=== PATIENT | male | born 1980 | race Caucasian/White ===

== ENCOUNTER → 2016-05-07 | Outpatient (CLI) | payer OTHER ==
[~2016-05-07] MED LIST: CLIN150C2 PO; IBUP-15 PO; IBUP-1779 PO; NAPR550T PO; clindamycin PO
== END ==
LOC: PREOP 10:16
PROVIDERS: ATTEND Specialist
DX: Z01.818 Encounter for other preprocedural examination (principal)

== ENCOUNTER 2016-05-08 10:03 | Day surgery (SDC) | payer OTHER ==
[~2016-05-08] VITALS: Ht 175.3 cm; Wt 72.6 kg
[2016-05-08] MEDS ORDERED: ceFAZolin 2 GM/NS 50 ML IV ONE (10:30)
[2016-05-08] MEDS ORDERED: LIDOCAINE PF 2% 10 ML (XYLOCAINE) AMP ONE (10:48)
[2016-05-08] MEDS ORDERED: ONDANSETRON 4 MG/2 ML (SDV) Z0FRAN ONE ×2 (10:48→12:17)
[2016-05-08] MEDS ORDERED: DEXAMETHASONE PF 10 MG/ML (DECADRON) VIAL ONE (10:48)
[2016-05-08] MEDS ORDERED: MIDAZOLAM 2 MG/2 ML (VERSED) VIAL ONE (10:49)
[2016-05-08] MEDS ORDERED: proPOfol 200 MG/20 ML (DIPRIVAN) VIAL IV ONE (10:49)
[2016-05-08] MEDS ORDERED: LACTATED RINGERS 1,000 ML IV ONE ×2 (10:49→12:05)
[2016-05-08] MEDS ORDERED: ROCURONIUM 50 MG/5 ML (ZEMURON) VIAL IV ONE (10:49)
[2016-05-08] MEDS ORDERED: fentaNYL INJECTION 100 MCG/2 ML AMP ONE (10:50)
[2016-05-08] MEDS ORDERED: LIDOCAINE/EPI 2% 1:100,00 (XYLOCAINE) 20 ML VIAL ONE (10:51)
[2016-05-08] MEDS: LACTATED RINGERS 1,000 ML IV PRN ×2 (10:54→12:05)
[2016-05-08] MEDS ORDERED: fentaNYL INJECTION 100 MCG/2 ML AMP IV ONE (11:00)
[2016-05-08 11:12] VITALS: BP 128/88
[2016-05-08] MEDS ORDERED: clindamycin PO (11:19)
[2016-05-08] MEDS ORDERED: IBUP-1779 PO (11:19)
[2016-05-08] MEDS ORDERED: NAPR550T PO (11:19)
[2016-05-08] MEDS ORDERED: PHENYLEPHRINE 0.25% NASAL SPR (NEO-SYNEPHRINE) 15 ML NS ONE (12:04)
[2016-05-08] MEDS ORDERED: GLYCOPYRROLATE 0.2 MG/ML (ROBINUL) 2 ML VIAL ONE (12:04)
[2016-05-08] MEDS ORDERED: SEVOFLURANE (ULTANE) 15 ML INHAL SOLN ONE ×3 (12:05→12:43)
[2016-05-08] MEDS ORDERED: morphine INJ 10 MG/ML 1ML (SYR OR VIAL) ONE (12:17)
[2016-05-08] MEDS ORDERED: MEPERIDINE (DEMEROL) INJ 50 MG/ML ONE (12:17)
[2016-05-08] MEDS ORDERED: HYDROmorphone (DILAUDID) 2 MG/ML VIAL ONE ×2 (12:17→13:03)
[2016-05-08] MEDS ORDERED: PHENYLEPHRINE 100 MCG/ML 10 ML (ANESTHESIA) SYR ONE (12:43)
[2016-05-08] MEDS: morphine INJ 10 MG/ML 1ML (SYR OR VIAL) IVP PRN ×2 (13:01→13:04)
[2016-05-08] MEDS: HYDROmorphone (DILAUDID) 2 MG/ML VIAL IV PRN ×3 (13:09→13:24)
[2016-05-08] MEDS ORDERED: fentaNYL INJECTION 100 MCG/2 ML AMP IVP PRN (13:15)
[2016-05-08] MEDS ORDERED: HYDROmorphone (DILAUDID) 2 MG/ML VIAL IVP PRN (13:15)
[2016-05-08] MEDS ORDERED: ONDANSETRON 4 MG/2 ML (SDV) Z0FRAN IVP PRN (13:15)
[2016-05-08] MEDS ORDERED: MEPERIDINE (DEMEROL) INJ 50 MG/ML IVP PRN (13:15)
[2016-05-08] MEDS ORDERED: PROMETHAZINE INJ 25 MG/ML (PHENERGAN) AMP IVP PRN (13:15)
--- NOTE | 2016-05-08 13:19 | Progress Note-Pre Operative ---
Pre-Operative Progress Note H&P Reviewed The H&P was reviewed, patient examined and no changes noted. Date H&P Reviewed: May 08, 2016 Time H&P Reviewed: 11:00 Pre-Operative Diagnosis: left mandibular angle fx ZANDRA REAL DDS May 08, 2016 1:19 pm
--- NOTE | 2016-05-08 13:22 | Progress Note-Post Operative ---
Post-Operative Progess Note Surgeon (s)/Assembler Clip On Sunglasses (s) Surgeon ZANDRA REAL DDS Assembler Clip On Sunglasses: ray chaney Pre-Operative Diagnosis left mandibular angle fx Post-Operative Diagnosis same Post-Op Procedure Note Date of Procedure: May 08, 2016 Name of Procedure Performed: open reduction left mandibular angle fx ext of 15 and 18 Description of the Procedure: as above Findings of the Procedure same as preop Anesthesia Type geta Estimated blood loss (mL): minimal Packing: none Specimen(s) collected/removed none ZANDRA REAL DDS May 08, 2016 1:22 pm
[2016-05-08] MEDS ORDERED: DEXAMETHASONE 4 MG/ML SDV (DECADRON) ONE (13:24)
[2016-05-08] MEDS ORDERED: DEXAMETHASONE 4 MG/ML SDV (DECADRON) IV SCH (13:30)
[2016-05-08] MEDS ORDERED: HYDROcodone/APAP 7.5MG-325 MG/15 ML (LORTAB) UDC PO PRN (13:30)
[2016-05-08 13:50] VITALS: BP 138/97
[2016-05-08] MEDS ORDERED: ceFAZolin INJECTION 1,000 MG in NS (IVPB) 50 ML IV SCH (14:00)
[2016-05-08] MEDS ORDERED: IBUP-15 PO (14:12)
[2016-05-08] MEDS ORDERED: CLIN150C2 PO (14:12)
[2016-05-08 14:20] VITALS: BP 135/78
[2016-05-08 14:45] VITALS: BP 135/78
--- NOTE | 2016-05-26 08:38 | OPERATIVE REPORT ---
PROCEDURE PHYSICIAN: ZANDRA REAL DATE OF PROCEDURE: 05/08/2016 SERVICE: veterinary surgery technician. PREOPERATIVE DIAGNOSIS: Left mandibular angle fracture, complete, open and minimally displaced. POSTOPERATIVE DIAGNOSIS: Left mandibular angle fracture, complete, open and minimally displaced. PROCEDURE: 1. Open reduction of left mandibular angle fracture. 2. Extraction of tooth numbers 15 and 18. 3. Application of Naresh arch bars. SUBSTANCE ABUSE COUNSELOR: Leslie Johnson COMPLICATIONS: None. ESTIMATED BLOOD LOSS: Minimal. FLUIDS: 700 mL of crystalloid. INSTRUMENT, NEEDLE AND SPONGE COUNT: Correct x2. ANESTHESIA: General endotracheal. HISTORY OF PRESENT ILLNESS/INDICATION FOR PROCEDURE: I was consulted. Mr. Mariscal is a 35-year-old, white male, who is presently under the care of the [employer]. They called me and I advised me that he had been complaining of his jaw and then after examining, radiographically he did indeed have a left mandibular angle fracture. He was then seen and evaluated in my office and after speaking with him extensively as well as correctional officers, we advised him that he would be best treated by taken to the operating room where removal of his fractured tooth number 18 as well as tooth number 15, which was decayed and nonrestorable and then reduce the fracture and then place him in inner maxillary fixation for 3 weeks. After this, then he was then scheduled at the earliest opportune time. PROCEDURE: The patient was taken operating room, placed on the operatory table. The appropriate monitors were placed. Anesthesia was induced with nasotracheal intubation without difficulty. Once this was secured, the surgeon left the room, scrubbed and donned sterile gowns and gloves and then prepped and draped the patient in the usual standard sterile fashion. After depositing local anesthesia in and around the anterior maxillary wall in bilateral mandibular blocks, we also placed a throat pack prior to starting this. As this was allowed to take effect, I elevated and then removed tooth number 15 without difficulty. There were no retained roots. There was no sinus exposure. I then closed with 3-0 chromic gut. After this, I made a full-thickness mucoperiosteal flap along the external oblique ridge around tooth number 18. I then elevated the full-thickness mucoperiosteal flap. After this, we then removed tooth number 18. The root had been fractured on the medial aspect half proximately at the CJ. After that we then removed the tooth in entirety. He also had some bony spicules and necrotic bone in that region, as well as some serosanguineous fluid. We then copiously irrigated with normal saline and I was able to place the patient into intermaxillary fixation to reestablish his, what appeared to be his preinjury occlusion and then lined up the fracture sites that point. We then closed the incision with a 3-0 chromic gut in a running fashion and then placed upper and lower Naresh arch bars from the first molar on the right side so from [address] to tooth number 4 and then from 19 to 29. These were fixated with 24-gauge ligature wires. After this we then placed to the wire loops to place him into intermaxillary fixation. Prior to placement of the final wire loops, we removed the throat pack. After this he was allowed to emerge from his anesthetic until he was breathing spontaneously, then she was then extubated. After this he was transported to the recovery room where he was assessed to have stable vital signs, breathing spontaneously with pulse oximetry of 99%. Job ID: [id number] Dictated Date: 05/22/2016 09:38:45 Locomotive Inspector Date: 05/26/2016 08:25:39 / [email or web address]
== END 2016-05-08 14:45 | disposition home or self-care (01) ==
LOC: DELPENDDIS → SDC 10:03
PROVIDERS: ATTEND Specialist
DX: S02.652A Fracture of angle of left mandible, initial encounter for closed fracture (principal); Y35.93XA Legal intervention, means unspecified, suspect injured, initial encounter; Y99.8 Other external cause status
CPT/HCPCS: 80306; 87081